=== PATIENT | male | born 1935 | race Two or more races ===

== ENCOUNTER 2018-11-22 05:44 | Day surgery (SDC) | payer OTHER ==
[~2018-11-22 05:44] MED LIST: CIPRO500 MG PO; ENALAPRIL MALEAT5 MG PO; FENOFIBRATE160 MG PO; GLIPIZIDE10 MG PO; GLUMETZA1000 MG PO; INTEGRA PLUS CAPSULE PO; INTESTINEX1 CA1 PO; POLY119PG PO; TRAM1TAB98 PO
== END 2018-11-22 09:50 | disposition home or self-care (01) ==
LOC: AMB-ENDOS 05:44
DX: K57.30 Diverticulosis of large intestine without perforation or abscess without bleeding (principal); K64.8 Other hemorrhoids

== ENCOUNTER 2020-01-09 08:14 | Day surgery (SDC) | payer OTHER | END 2020-01-09 12:50 | disposition home or self-care (01) | LOC: AMB-ENDOS 08:14 | DX: D12.8 Benign neoplasm of rectum (principal); K57.30 Diverticulosis of large intestine without perforation or abscess without bleeding ==